=== PATIENT | female | born 1995 | race Caucasian/White ===

== ENCOUNTER → 2018-04-23 | Outpatient (CLI) | payer OTHER | LOC: FIMAGING 12:07 | PROVIDERS: ATTEND Advanced Practice Midwife | DX: Z34.92 Encounter for supervision of normal pregnancy, unspecified, second trimester (principal); Z3A.23 23 weeks gestation of pregnancy ==

== ENCOUNTER 2018-08-08 17:45 | Inpatient (IN) | payer SELFPAY ==
[2018-08-08] MEDS ORDERED: OXYTOCIN/RINGERS LACTATE 1,000 ML IV PRN (18:04)
[2018-08-08] MEDS ORDERED: MISOPROSTOL 200 MCG TAB PR PRN (18:04)
[2018-08-08] MEDS ORDERED: IBUPROFEN 600 MG TAB PO PRN (18:04)
[2018-08-08] MEDS ORDERED: EPSOM SALT 454 GM TP PRN (18:04)
[2018-08-08] MEDS ORDERED: OLIVE OIL 118 ML BTL MISC PRN (18:04)
[2018-08-08] MEDS ORDERED: LIDOCAINE 1% 300 MG/30 ML SDV SC PRN (18:04)
[2018-08-08] MEDS ORDERED: LR 1,000 ML IV PRN (18:04)
[2018-08-08] MEDS ORDERED: fentaNYL 2MCG/ML/BUP 0.1% RTU 100 ML BAG EP ONE (18:05)
[2018-08-08] MEDS ORDERED: BUPIVACAINE 0.25% 10 ML SDV ONE (18:06)
[2018-08-08 18:32] LABS: PLATELET COUNT 314 10^3/uL (150-400)
[2018-08-08] MEDS ORDERED: METOCLOPRAMIDE 10 MG/2 ML VIAL IVP PRN (18:32)
[2018-08-08] MEDS ORDERED: ONDANSETRON 4 MG/2 ML VIAL IVP PRN (18:32)
--- NOTE | 2018-08-08 18:32 | POSTANESTH ---
Post Anesthetic Evaluation Cardiovascular Status: Normal, Stable Respiratory Status: Normal, Stable Level of Consciousness/Mental Status: Can Participate in Eval Pain Control: Adequate, Prn Tx Ordered Nausea/Vomiting Control: Adequate, Prn Tx Ordered Complications Possibly Related to Anesthesia: None Noted
--- NOTE | 2018-08-08 18:32 | PREANESOB ---
Obstetric Pre-Anesthesia Info - General Info Proposed Procedure: MARIA ANTONIA - Info Status: Full Term Monitors: External FHR Pattern: Reassuring - Labor Status Indications for Labor Analgesia: Pain Control Labor Epidural: Proposed Anesthesia Allergies/Adverse Reactions: Allergy/AdvReac Type Severity Reaction Status Date / Time No Known Allergies Allergy Unverified 08/08/18 18:04 Visit Medications: Generic Name Dose Route Start Last Admin Trade Name Freq PRN Reason Stop Dose Admin Lactated Ringer's 1,000 mls @ 0 mls/hr 08/08/18 18:04 Lr IV 08/09/18 18:03 PRN PRN SEE PROTOCOL CONDITIONS Protocol Per Protocol Oxytocin/Lactated Ringer's 1,000 mls @ 125 mls/hr 08/08/18 18:04 Pitocin 20 Units/Lr (Premix) IV PRN PRN Post bleeding Ibuprofen 600 mg 08/08/18 18:04 Motrin PO ONCE PRN post , pain Lidocaine HCl 300 mg 08/08/18 18:04 Lidocaine Hcl 1% SC 02/04/19 18:03 ONCE PRN episiotomy Magnesium Sulfate 454 gm 08/08/18 18:04 Epsom Salt TP 02/04/19 18:03 Q1H PRN perineal discomfort Misoprostol 800 - 1,000 mcg 08/08/18 18:04 Cytotec HI ONCE PRN Vaginal Atony/Bleeding [place] Oil 118 ml 08/08/18 18:04 Sweet Oil MISC 02/04/19 18:03 ONCE PRN perineal massage Discontinued Medications Generic Name Dose Route Start Last Admin Trade Name Freq PRN Reason Stop Dose Admin Bupivacaine HCl Confirm 08/08/18 18:06 Sensorcaine 0.25% Sdv Administered 08/08/18 18:07 Dose 10 ml .ROUTE .STK-MED ONE Fentanyl/Bupivacaine HCl Confirm 08/08/18 18:05 Fentanyl/Bupivacaine/Ns 2 Mcg/Ml 0.1% (Premix Administered 08/08/18 18:06 Dose 100 ml EP .STK-MED ONE - Anesthesia History Response to Local Anesthetics: Not Applicable Anesthesia & Operative History: No Prior Problems Family Anesthesia History: Not Applicable - Focused Exam Neck exam: FROM Mallampati Score: Class 2 Mouth exam: normal dental/mouth exam Pulmonary: no respiratory distress Cardiovascular: regular rate and rhythym - Plan Consent Signed and on Chart: Yes Patient/Guardian Understands and Agrees to Plan: Yes Urgent/Emergent Case: Kaseylesley suhail completed preop but documented later for safe timely pt care
[2018-08-08] MEDS ORDERED: LIDOCAINE 1% 300 MG/30 ML SDV ONE (18:35)
[2018-08-08] MEDS ORDERED: OLIVE OIL 118 ML BTL MISC ONE (18:35)
[2018-08-08] MEDS ORDERED: TERBUTALINE SULFATE 1 MG/ML VIAL ONE (18:36)
[2018-08-08] MEDS ORDERED: AMMONIA AROMATIC 1 EACH AMP IH ONE (18:36)
[2018-08-08] MEDS ORDERED: OXYTOCIN 10 UNIT/ML VIAL ONE (18:37)
[2018-08-08] MEDS ORDERED: fentaNYL 2MCG/ML/BUP 0.1% RTU 100 ML EP SCH (19:00)
[2018-08-08] MEDS ORDERED: LR 500 ML IV SCH (19:00)
--- NOTE | 2018-08-08 19:09 | PDGENHP ---
History and Physical History and Physical: Care: [facility] HPI: Sarah Miguel is a 22yo with IUP@38-2 weeks that presents to L&D for pain relief from center. She had ROM 08/07/18 @ 2345, which was clear. She reports contractions q6 min and states she is exhausted and can't do this anymore. She denies any VB. She reports +FM. EDC: 08/20/18 which is based on LMP which is known and consistent with Ultrasound at 6 weeks. Her is complicated by: increased NT- NIPT Negative Review of Systems: Constitutional: Denies any fever, chills, or fatigue HEENT: denies any visual changes, difficulty swallowing, hearing loss Cardiovascular: Denies any chest pain, palpitations, leg swelling Respiratory: denies any cough, wheezing, or shortness of breathe GI: Denies any nausea, vomiting, diarrhea, constipation : denies any dysuria, urgency, frequency, vaginal bleeding Musculoskeletal: denies any muscle or bone pain Skin: denies any rashes Neuro: denies any headache, seizures, lightheadedness, dizziness, or loss of consciousness Psychiatric: denies any depression, anxiety, or SI/HI thoughts HISTORY: Previous OB history: G1 Past medical history: denies any Past surgical history: denies any Social: Denies any alcohol, tobacco, or drug use. Partner Demetrius. Family history: Not relevant Medications: PNV, zyrtec Allergies (list reaction): NKDA LABS: Rh: A+ ABS: Neg Rubella: Immune HbsAg: NR HIV: NR VDRL: NR 1hr: 91 GC: Neg Chlamydia: Neg Pap: Normal GBS: negative PHYSICAL EXAM: Constitutional: WN, A&Ox3 HEENT: normocephalic atraumatic, supple Skin: Warm, dry, intact Heart: RRR, no murmur Chest: CTA-B Abdomen: Soft, nontender, gravid SVE: /-1 Extremities: no edema, negative homans sign Neuro: grossly normal Psych: normal affect assessment: FHT baseline 145 +accels, late decels noted post MARIA ANTONIA, moderate variability Contractions: toco q 4-6, palpate mild Assessment: * 22yo with IUP@ 38-2wks * PROM 08/07/18 @2345- clear * cat 2 FHR Tracing * GBS Negative Plan: * admit to L&D * MARIA ANTONIA- already placed * cont EFM * start pitocin * reassess PRN * anticipate Today's visit was approximately 30 min, of which >50% of visit 20 min, was spent face to face with pt on direct counseling/coordination of care.
[2018-08-08] MEDS ORDERED: PHENYLEPHRINE HCL 100 MCG/ML SYR IVP PRN (19:21)
[2018-08-08] MEDS ORDERED: LR 500 ML IV PRN (19:23)
[2018-08-08] MEDS ORDERED: OXYTOCIN/RINGERS LACTATE 500 ML IV SCH (19:30)
--- NOTE | 2018-08-08 23:07 | OBPROG ---
Labor Progress Note Assessment/Plan: Assessment: 22yo with IUP@ 38-2wks SROM- clear 08/07@1955 Cat 2 FHR tracing GBS Negative Plan: cont pitocin augmentation, stop if indicated by FHR tracing reassess 1hr/PRN peanut ball/position changes anticipate 08/08/18 23:04 Subjective/Intrapartum Course: 08/08/18 23:06 Pt doing well, she was able to rest some since MARIA ANTONIA. She reports some pain and feeling contractions on her left side. FOB and family @BS and supportive. Objective: 08/08/18 17:00 Patient ABO/Rh A POSITIVE 08/08/18 17:00 - SVE Dilation (cm): 8 Effacement (%): 90 Station: -1 Membranes: SROM Amniotic Fluid Color: Clear - Contraction Pattern Assessment Current Contraction Pattern: Regular - FHR Assessment [place] FHR (bpm): 145 FHR Pattern Variability: Moderate FHR Category: 2 Oxytocin Orders Assessment - Pre-Induction/Augmentation Assessment Gestational Age: 38 week(s) and 2 day(s) ICD10 Worksheet Patient Problems: Problems Problem Status Onset Labor and delivery, indication for care Acute - ICD10 Problem Qualifiers (1) Labor and delivery, indication for care
[2018-08-09] MEDS ORDERED: ACETAMINOPHEN 500 MG TAB PO PRN (00:10)
[2018-08-09] MEDS ORDERED: GENTAMICIN PHARMACY TO DOSE MISC SCH (00:15)
[2018-08-09] MEDS ORDERED: GENTAMICIN SULFATE 300 MG in D5W 100 ML IV SCH (00:30)
[2018-08-09] MEDS: AMPICILLIN SODIUM 2 GM in NS 100 ML IV SCH ×4 (00:30→18:21)
--- NOTE | 2018-08-09 01:08 | OBPROG ---
Labor Progress Note Assessment/Plan: Assessment: 22yo with IUP@ 38-2wks SROM- clear 08/07@7937 Cat 2 FHR tracing GBS Negative chorioamnionitis Plan: stop pitocin 05/12 cat 2 FHR Tracing position changes cont abx notified Lizet Rebolledo Subjective/Intrapartum Course: 08/08/18 23:06 Pt doing well, she was able to rest some since MARIA ANTONIA. She reports some pain and feeling contractions on her left side. FOB and family @BS and supportive. 08/09/18 00:11 Pt doing ok- denies any pain. She is comfortable with MARIA ANTONIA. explained chorio dx- agreeable to abx and tylenol. will cont pitocin as able with FHR. FOB and family @ BS and supportive. 08/09/18 00:15 pt feeling some pain in her back and also feeling intermittent pressure. Objective: 08/08/18 17:00 Patient ABO/Rh A POSITIVE 08/08/18 17:00 - SVE Dilation (cm): 9 Effacement (%): 90 Station: -1 Membranes: SROM Amniotic Fluid Color: Clear - Contraction Pattern Assessment Current Contraction Pattern: Regular - FHR Assessment [place] FHR (bpm): 165 FHR Pattern Variability: Moderate FHR Category: 2 Oxytocin Orders Assessment - Pre-Induction/Augmentation Assessment Gestational Age: 38 week(s) and 2 day(s) ICD10 Worksheet Patient Problems: Problems Problem Status Onset Labor and delivery, indication for care Acute - ICD10 Problem Qualifiers (1) Labor and delivery, indication for care
--- NOTE | 2018-08-09 04:00 | OBDEL ---
Info Type: Vaginal Presentation at Delivery: Vertex L&D Analgesia/Anesthesia Type: Epidural GBS+: No Intrapartum Medications: Generic Name Dose Route Start Last Admin Trade Name Adrian PRN Reason Stop Dose Admin Acetaminophen 1,000 mg 08/09/18 00:10 08/09/18 00:17 Tylenol PO 02/05/19 00:09 1,000 mg Q6HRS PRN Administration Pain, Mild/Fever, Can Take PO Fentanyl/Bupivacaine HCl 100 mls @ 0 mls/hr 08/08/18 19:00 08/09/18 01:12 Fentanyl/Bupivacaine/Ns 2 Mcg/Ml 0.1% (Premix EP 08/18/18 18:59 100 mls CONT RICK Administration Protocol As Directed Oxytocin/Lactated Ringer's 500 mls @ 0 mls/hr 08/08/18 19:30 08/08/18 19:34 Pitocin 30 Units/Lr (Premix) IV 02/04/19 19:29 500 mls CONT RICK Administration Protocol Per Protocol Ampicillin Sodium 2 gm/ Sodium 100 mls @ 200 mls/hr 08/09/18 00:15 08/09/18 00:30 Chloride IV 09/08/18 00:14 100 mls Q6H RICK Administration Protocol - Hospital Course Intrapartum: 08/08/18 23:06 Pt doing well, she was able to rest some since MARIA ANTONIA. She reports some pain and feeling contractions on her left side. FOB and family @BS and supportive. 08/09/18 00:11 Pt doing ok- denies any pain. She is comfortable with MARIA ANTONIA. explained chorio dx- agreeable to abx and tylenol. will cont pitocin as able with FHR. FOB and family @ BS and supportive. 08/09/18 00:15 pt feeling some pain in her back and also feeling intermittent pressure. Indications for Delivery: SROM Vaginal Delivery - Delivery Provider Delivery Physician/CNM: Tiffany Ritter - Labor and Delivery Onset of Contractions Date: 08/08/18 Onset of Contractions Time: 00:00 Onset of Contractions Type: Augmented Rupture of Membranes Date: 08/07/18 Rupture of Membranes Time: 23:45 Rupture of Membranes Type: Spontaneous Amniotic Fluid Color: Clear Dilation Complete Date: 08/09/18 Dilation Complete Time: 02:03 Placenta Delivery Date: 05/02/19 Placenta Delivery Time: 03:40 Total Hours of Labor: 27 Laceration: 1st Degree Repair: 3-0, Vicryl Vaginal Sponge Count Correct: Yes Vaginal Needle Count Correct: Yes Vaginal Sweep Performed: Yes EBL: 300 Delivery Comment: [employer] called to room for delivery 2/2 chorio and persistent cat 2 FHR tracing baby delivered without difficulty. spontaneous cry and baby to moms chest. - Medications Labor Augmentation/Induction Methods Used: Pitocin Data LAMBERTO: 08/20/18 Gestational Age: 38 week(s) and 3 day(s) [place] Delivery Date: 08/09/18 Delivery Time: 03:19 Sex of : Female Score (1 Min): 9 Score (5 Min): 9 ICD10 Worksheet Patient Problems: Problems Problem Status Onset Chorioamnionitis Acute Labor and delivery, indication for care Acute - ICD10 Problem Qualifiers (1) Labor and delivery, indication for care (2) Chorioamnionitis
[2018-08-09] MEDS ORDERED: SIMETHICONE 80 MG TAB CHEW PO PRN (04:03)
[2018-08-09] MEDS ORDERED: ACETAMINOPHEN 325 MG TAB PO PRN (04:03)
[2018-08-09] MEDS ORDERED: HYDROCORTISONE 0.5% CREAM TP PRN (04:03)
[2018-08-09] MEDS ORDERED: OXYTOCIN/RINGERS LACTATE 1,000 ML IV SCH (04:30)
[2018-08-09] MEDS: IBUPROFEN 600 MG TAB PO PRN ×3 (11:23→23:35)
[2018-08-09] MEDS: DOCUSATE SODIUM 100 MG CAP PO PRN (11:23)
[2018-08-10] MEDS: IBUPROFEN 600 MG TAB PO PRN ×3 (05:44→21:12)
--- NOTE | 2018-08-10 09:02 | POSTANESTH ---
Post Anesthetic Evaluation Cardiovascular Status: Normal, Stable Respiratory Status: Normal, Stable Level of Consciousness/Mental Status: Can Participate in Eval, Alert and Oriented Pain Control: Adequate, Prn Tx Ordered Nausea/Vomiting Control: Adequate, Prn Tx Ordered Complications Possibly Related to Anesthesia: None Noted (happy with MARIA ANTONIA, no complaints, no adverse effects)
--- NOTE | 2018-08-10 10:33 | OBPP ---
Progress Note Assessment/Plan: Assessment: 1. PP day 1 2. 3. chorio 4. BF difficulty Plan: 1. d/c home tomorrow 2. F/u with [facility] 3. support 08/10/18 10:38 Subjective/ Course: 08/10/18 10:39 pt feeling well, some soreness from labor. PO meds are effective. Using shells for flat nipples. Objective: 08/08/18 17:00 Patient ABO/Rh A POSITIVE 08/08/18 17:00 Temp Pulse Resp BP Pulse Ox 36.3 C 74 16 90/59 L 98 08/10/18 04:24 08/10/18 04:24 08/10/18 04:24 08/10/18 04:24 08/09/18 20:00 VSS, afebrile Uterine Position/Fundal Height: At Umbilicus Uterine Tone: Firm
[2018-08-10] MEDS: DOCUSATE SODIUM 100 MG CAP PO PRN ×2 (14:08→21:13)
[2018-08-11] MEDS: IBUPROFEN 600 MG TAB PO PRN ×2 (05:12→10:59)
[2018-08-11] MEDS: DOCUSATE SODIUM 100 MG CAP PO PRN (08:44)
--- NOTE | 2018-08-11 09:46 | OBGCSDC ---
General Delivery Information - General Info : 1 Para: 1 Abortions: 0 Type: Vaginal L&D Analgesia/Anesthesia Type: Epidural Admission Date: 08/08/18 Labs: Patient ABO/Rh A POSITIVE 08/08/18 17:00 Hct 38.9 % (38.0-47.0) 08/08/18 17:00 - Hospital Course Intrapartum: 08/08/18 23:06 Pt doing well, she was able to rest some since MARIA ANTONIA. She reports some pain and feeling contractions on her left side. FOB and family @BS and supportive. 08/09/18 00:11 Pt doing ok- denies any pain. She is comfortable with MARIA ANTONIA. explained chorio dx- agreeable to abx and tylenol. will cont pitocin as able with FHR. FOB and family @ BS and supportive. 08/09/18 00:15 pt feeling some pain in her back and also feeling intermittent pressure. : 08/10/18 10:39 pt feeling well, some soreness from labor. PO meds are effective. Using shells for flat nipples. 08/11/18 09:44 Pumping breast milk and trying to breast feed. Has help at home from [facility]. Bleeding wnl today. Denies pain. Vaginal - Delivery Provider Delivery Physician/CNM: Tiffany Ritter - Diagnosis Labor: Augmented Rupture of Membranes Type: Spontaneous Amniotic Fluid Color: Clear Laceration: 1st Degree Repair: 3-0, Vicryl - Delivery EBL: 300 [place] Data LAMBERTO: 08/20/18 Gestational Age: 38 week(s) and 5 day(s) [place] Delivery Date: 08/09/18 Delivery Time: 03:19 Sex of Infant: Female [place] Weight (gm): 2850 kg Score (1 Min): 9 Score (5 Min): 9 Discharge Information - Discharge Information Instruction/Follow Up: Two Weeks (with [facility])
[2018-08-11 09:59] VITALS: BP 105/61
== END 2018-08-11 11:15 | disposition home or self-care (01) | DRG 807 ==
LOC: FLD 17:45 → FOB 08-09 06:18
PROVIDERS: ADMIT Advanced Practice Midwife; ATTEND Advanced Practice Midwife
DX: O41.1290 Chorioamnionitis, unspecified trimester, not applicable or unspecified (principal); O70.0 First degree perineal laceration during delivery; Z37.0 Single live birth
CPT/HCPCS: G0463; J0290; J1580; J2590; J3105